=== PATIENT | male | born 1975 | race African-American/Black ===

== ENCOUNTER 2017-11-25 17:53 | Emergency (ER) | payer MEDICAID, MEDICARE ==
[~2017-11-25] VITALS: Ht 167.6 cm; Wt 112.0 kg
[2017-11-25] MEDS ORDERED: SPIR50TA26 PO (18:54)
[2017-11-25] MEDS ORDERED: LACT10SO6 PO (18:54)
[2017-11-25] MEDS ORDERED: ARIP20TA2 GT (18:54)
[2017-11-25] MEDS ORDERED: TRAM50TA3 PO (18:54)
[2017-11-25] MEDS ORDERED: SERT100T PO (18:54)
[2017-11-25] MEDS ORDERED: ACET167L14 PO (18:54)
[2017-11-25] MEDS ORDERED: FERR142T6 PO (18:54)
[2017-11-25] MEDS ORDERED: GLIP10TA10 PO (18:54)
[2017-11-25] MEDS ORDERED: TADA5TAB PO (18:54)
[2017-11-25] MEDS ORDERED: METO-411 PO (18:54)
[2017-11-25] MEDS ORDERED: UBID200C30 PO (18:54)
[2017-11-26 00:50] LABS: BASOPHILS % 1.2 % (0.0-2.0); EOSINOPHILS % 4.9 % (0.0-5.0); HEMATOCRIT. 35.1 % (42.0-52.0); HEMOGLOBIN. 11.5 g/dL (14.0-18.0); LYMPHOCYTES % 10.8 % (20.0-50.0); MEAN CORPUSCULAR HEMOGLOBIN 29.9 pg (28.0-32.0); MEAN CORPUSCULAR VOLUME 91.1 fL (80.0-94.0); MEAN PLATELET VOLUME 9.4 fl (7.4-10.4); MONOCYTES % 11.7 % (2.0-8.0); NEUTROPHILS % 71.4 % (40.0-76.0); PLATELET 181 x1000/uL (130-400); RED BLOOD CELL COUNT 3.85 mill/uL (4.7-6.1); RED CELL DISTRIBUTION WIDTH 15.9 % (11.6-14.6)
[2017-11-26 00:57] LABS: INR 1.1; PROTHROMBIN TIME 11.2 sec (9.4-11.6)
[2017-11-26 00:59] LABS: CHLORIDE 97 mEq/L (98-107)
[2017-11-26 02:52] VITALS: BP 143/91
== END 2017-11-26 02:54 | disposition home or self-care (01) ==
LOC: ER 17:53
DX: I12.0 Hypertensive chronic kidney disease with stage 5 chronic kidney disease or end stage renal disease (principal); E11.22 Type 2 diabetes mellitus with diabetic chronic kidney disease; N18.6 End stage renal disease; R60.0 Localized edema; F12.10 Cannabis abuse, uncomplicated; Z99.2 Dependence on renal dialysis; Z79.84 Long term (current) use of oral hypoglycemic drugs
CPT/HCPCS: 36415; 71045; 80053; 83880; 85025; 85610; 93971; 99285

== ENCOUNTER 2020-09-02 13:23 | Emergency (ER) | payer MEDICARE, MEDICAID ==
[~2020-09-02] VITALS: Ht 180.3 cm; Wt 90.0 kg
[~2020-09-02 13:23] MED LIST: ACET167L14 PO; ARIP20TA2 GT; FERR142T6 PO; GLIP10TA10 PO; LACT10SO6 PO; METO-411 PO; SERT100T PO; SPIR50TA5 PO; TADA5TAB PO; TRAM50TA3 PO; UBID200C35 PO
[2020-09-02] MEDS ORDERED: LEVOFLOXACIN 500MG PREMIX 100 ML IV ONE (14:15)
[2020-09-02 15:08] LABS: BASOPHILS % 1.9 % (0.0-2.0); HEMATOCRIT. 40.2 % (42.0-52.0); HEMOGLOBIN. 13.4 g/dL (14.0-18.0); LYMPHOCYTES % 17.1 % (20.0-50.0); MEAN CORPUSCULAR HEMOGLOBIN 32.5 pg (28.0-32.0); MEAN CORPUSCULAR VOLUME 97.5 fL (80.0-94.0); MEAN PLATELET VOLUME 8.2 fl (7.4-10.4); MONOCYTES % 8.2 % (2.0-8.0); NEUTROPHILS % 65.8 % (40.0-76.0); PLATELET 124 x1000/uL (130-400); RED BLOOD CELL COUNT 4.13 mill/uL (4.7-6.1)
[2020-09-02 19:29] VITALS: BP 154/80
== END 2020-09-02 19:38 | disposition home or self-care (01) ==
LOC: ER 13:23
DX: J18.9 Pneumonia, unspecified organism (principal); F12.10 Cannabis abuse, uncomplicated; E11.9 Type 2 diabetes mellitus without complications; I10 Essential (primary) hypertension; Z20.828 Contact with and (suspected) exposure to other viral communicable diseases; Z79.899 Other long term (current) drug therapy; Z93.0 Tracheostomy status
CPT/HCPCS: 36415; 71045; 80048; 83605; 85025; 87635; 96365; 99285; J1956

== ENCOUNTER 2020-09-27 10:03 | Emergency (ER) | payer MEDICARE, MEDICAID ==
[~2020-09-27] VITALS: Ht 172.7 cm; Wt 115.0 kg
[2020-09-27 12:56] LABS: CHLORIDE 98 mEq/L (98-107)
[2020-09-27 12:57] LABS: BASOPHILS % 0.3 % (0.0-2.0); EOSINOPHILS % 6.1 % (0.0-5.0); HEMATOCRIT. 43.5 % (42.0-52.0); HEMOGLOBIN. 14.5 g/dL (14.0-18.0); LYMPHOCYTES % 18.7 % (20.0-50.0); MEAN CORPUSCULAR HEMOGLOBIN 32.1 pg (28.0-32.0); MEAN CORPUSCULAR VOLUME 96.1 fL (80.0-94.0); MONOCYTES % 11.3 % (2.0-8.0); NEUTROPHILS % 63.6 % (40.0-76.0); PLATELET 136 x1000/uL (130-400); RED BLOOD CELL COUNT 4.52 mill/uL (4.7-6.1); RED CELL DISTRIBUTION WIDTH 18.7 % (11.6-14.6)
[2020-09-27 13:02] LABS: INR 1.1; PARTIAL THROMBOPLASTIN TIME 32.7 sec (23.4-31.0); PHOSPHORUS 4.3 mg/dL (2.5-4.9); PROTHROMBIN TIME 11.3 sec (9.6-11.0)
[2020-09-27 13:28] LABS: BG BASE EXCESS -5.3 mmol/L (-2.0-2.0); BG DEOXYHEMOGLOBIN 1.5 % (0.0-5.0); BG HCO3 ACT 17.3 mmol/L (22.0-26.0); BG METHEMOGLOBIN 0.2 % (0.0-1.5); BG OXYGEN SATURATION 98.5 % (92.0-98.5); BG OXYHEMOGLOBIN 97.3 % (94.0-97.0); BG PCO2 26.8 mmHg (35.0-45.0); BG PH 7.428 (7.350-7.450); BG PO2 112.5 mmHg (75.0-100.0); BG SAMPLE SITE RIGHT RADIAL; BG TOTAL HEMOGLOBIN 15.1 g/dL (12.0-18.0); BG VENT MODE TRACH COLLAR
[2020-09-27] MEDS ORDERED: SODIUM POLYSTYRENE SULFONATE 15 G/60 ML BOT PO ONE (14:45)
[2020-09-27 16:30] VITALS: BP 145/81
== END 2020-09-27 16:33 | disposition home or self-care (01) ==
LOC: ER 10:18
DX: I12.0 Hypertensive chronic kidney disease with stage 5 chronic kidney disease or end stage renal disease (principal); N18.6 End stage renal disease; Z99.2 Dependence on renal dialysis; Z93.0 Tracheostomy status
CPT/HCPCS: 36415; 36600; 71045; 80053; 82375; 82805; 83735; 84100; 84484; 85025; 93005; 99285

== ENCOUNTER 2021-12-04 03:20 | Emergency (ER) | payer OTHER, MEDICAID ==
[~2021-12-04] VITALS: Ht 165.1 cm; Wt 101.0 kg
[2021-12-04 12:07] LABS: CHLORIDE 101 mEq/L (98-107)
[2021-12-04 12:08] LABS: HEMATOCRIT. 34.4 % (42.0-52.0); HEMOGLOBIN. 11.1 g/dL (14.0-18.0); MEAN CORPUSCULAR HEMOGLOBIN 32.4 pg (28.0-32.0); MEAN CORPUSCULAR VOLUME 100.7 fL (80.0-94.0); MEAN PLATELET VOLUME 7.9 fl (7.4-10.4); PLATELET 131 x1000/uL (130-400); RED BLOOD CELL COUNT 3.42 mill/uL (4.7-6.1); RED CELL DISTRIBUTION WIDTH 21.4 % (11.6-14.6)
[2021-12-04] MEDS ORDERED: CALCIUM CHLORIDE 1GM/10ML SYR IV ONE (12:30)
[2021-12-04] MEDS ORDERED: ALBUTEROL (0.083%) 2.5MG/3ML NEB HHN ONE (12:30)
[2021-12-04] MEDS ORDERED: SODIUM BICARBONATE 8.4% 1 MEQ/ML 50ML SYR IV ONE (12:30)
[2021-12-04] MEDS ORDERED: DEXTROSE 50% WATER 50ML SYRINGE IV ONE (12:30)
[2021-12-04] MEDS ORDERED: INSULIN REGULAR (HUMULIN R) 300UNITS/3ML VIAL IV ONE (12:30)
[2021-12-04 12:54] LABS: PLATELET ESTIMATE NORMAL
[2021-12-04] MEDS ORDERED: ALBUTEROL (0.5%) 2.5MG/0.5ML NEB HHN ONE (13:57)
[2021-12-04] MEDS ORDERED: DEXTROSE 50% WATER 50ML SYRINGE IV NR ×2 (16:15→16:46)
[2021-12-04] MEDS ORDERED: DEXTROSE 50% WATER 50ML SYRINGE IV PRN (16:15)
[2021-12-04 16:55] LABS: HEPATITIS B SURFACE ANTIGEN NEGATIVE
[2021-12-04] MEDS ORDERED: BLOOD SUGAR DIAGNOSTIC STRIP TEST SCH (17:00)
[2021-12-04] MEDS ORDERED: IPRATROPIUM/ALBUTEROL 0.5-3(2.5)MG/3ML NEB HHN SCH (18:00)
[2021-12-04 18:08] VITALS: BP 140/60
== END 2021-12-04 20:00 | disposition short-term general hospital (02) ==
LOC: ER 03:20 → CANBEDREQ 20:20
DX: J95.03 Malfunction of tracheostomy stoma (principal); I12.0 Hypertensive chronic kidney disease with stage 5 chronic kidney disease or end stage renal disease; E11.22 Type 2 diabetes mellitus with diabetic chronic kidney disease; N18.6 End stage renal disease; Z99.2 Dependence on renal dialysis; F12.10 Cannabis abuse, uncomplicated; Z79.899 Other long term (current) drug therapy; Z20.822 Contact with and (suspected) exposure to COVID-19
CPT/HCPCS: 36415; 71045; 80053; 82962; 84132; 85025; 86705; 86709; 86803; 87340; 87426; 93005; 94640; 96374; 96375; 96376; 99285; J1815; J3490

== ENCOUNTER 2021-12-09 18:15 | Emergency (ER) | payer OTHER, MEDICAID ==
[~2021-12-09] VITALS: Ht 175.3 cm; Wt 100.0 kg
[2021-12-10 02:00] VITALS: BP 109/51
== END 2021-12-10 02:10 | disposition home or self-care (01) ==
LOC: ER 18:15
DX: Z43.0 Encounter for attention to tracheostomy (principal); I12.0 Hypertensive chronic kidney disease with stage 5 chronic kidney disease or end stage renal disease; E11.22 Type 2 diabetes mellitus with diabetic chronic kidney disease; N18.6 End stage renal disease; Z99.2 Dependence on renal dialysis; J44.9 Chronic obstructive pulmonary disease, unspecified; G40.909 Epilepsy, unspecified, not intractable, without status epilepticus; Z79.899 Other long term (current) drug therapy; Z79.84 Long term (current) use of oral hypoglycemic drugs
CPT/HCPCS: 99285

== ENCOUNTER 2021-12-13 01:11 | Emergency (ER) | payer OTHER, MEDICAID ==
[~2021-12-13] VITALS: Ht 175.3 cm; Wt 118.0 kg
[2021-12-13 04:20] LABS: HEMATOCRIT 31.7 % (42.0-52.0); HEMOGLOBIN 10.5 g/dL (14.0-18.0); MEAN CORPUSCULAR HEMOGLOBIN 32.5 pg (28.0-32.0); MEAN CORPUSCULAR VOLUME 98.5 fL (80.0-94.0); PLATELET 173 x1000/uL (130-400); RED BLOOD CELL COUNT 3.21 mill/uL (4.7-6.1); RED CELL DISTRIBUTION WIDTH 20.5 % (11.6-14.6)
[2021-12-13 04:26] LABS: CHLORIDE 103 mEq/L (98-107)
[2021-12-13 10:00] VITALS: BP 97/45
== END 2021-12-13 11:09 | disposition short-term general hospital (02) ==
LOC: ER 01:11
DX: R06.02 Shortness of breath (principal); I12.0 Hypertensive chronic kidney disease with stage 5 chronic kidney disease or end stage renal disease; E11.22 Type 2 diabetes mellitus with diabetic chronic kidney disease; N18.6 End stage renal disease; Z20.822 Contact with and (suspected) exposure to COVID-19; Z99.2 Dependence on renal dialysis; Z87.891 Personal history of nicotine dependence; Z79.899 Other long term (current) drug therapy
CPT/HCPCS: 36415; 80053; 85027; 87426; 99285

== ENCOUNTER 2022-01-14 19:02 | Inpatient (IN) | payer OTHER, MEDICAID ==
[~2022-01-14] VITALS: Ht 167.6 cm; Wt 113.4 kg
[2022-01-14] MEDS ORDERED: ALBUTEROL (0.083%) 2.5MG/3ML NEB HHN STA (19:30)
[2022-01-14] MEDS ORDERED: IPRATROPIUM BROMIDE (0.02%) 0.5MG/2.5ML NEB HHN STA (19:30)
[2022-01-14] MEDS ORDERED: METHYLPREDNISOLONE SOD SUCC 125 MG/2 ML VIAL IV STA (19:30)
[2022-01-14 20:49] LABS: HEMATOCRIT. 30.6 % (42.0-52.0); MEAN CORPUSCULAR HEMOGLOBIN 33.5 pg (28.0-32.0); MEAN CORPUSCULAR VOLUME 102.8 fL (80.0-94.0); MEAN PLATELET VOLUME 8.2 fl (7.4-10.4); PLATELET 140 x1000/uL (130-400); RED BLOOD CELL COUNT 2.97 mill/uL (4.7-6.1); RED CELL DISTRIBUTION WIDTH 20.3 % (11.6-14.6)
[2022-01-14 21:04] LABS: CHLORIDE 99 mEq/L (98-107)
[2022-01-14 21:15] LABS: PLATELET ESTIMATE NORMAL
[2022-01-14] MEDS ORDERED: FUROSEMIDE 40MG/4ML VIAL IVP NR (22:00)
[2022-01-14] MEDS ORDERED: ALBUTEROL (0.083%) 2.5MG/3ML NEB HHN NR (23:45)
[2022-01-14] MEDS ORDERED: CEFEPIME 1,000 MG in DEXTROSE 5% WATER 50 ML IV NR (23:45)
[2022-01-15] MEDS ORDERED: DEXTROSE 50% WATER 50ML SYRINGE IV PRN (07:00)
[2022-01-15] MEDS ORDERED: INSULIN LISPRO (HUMALOG) 300UNITS/3ML VIAL SUBCUT NR (07:20)
[2022-01-15] MEDS: BLOOD SUGAR DIAGNOSTIC STRIP TEST SCH ×5 (07:48→22:25)
[2022-01-15] MEDS: INSULIN LISPRO 100 UNITS/ML SUBCUT SCH ×4 (07:48→22:38)
[2022-01-15] MEDS ORDERED: LIDOCAINE HCL/PF 1% 2ML VIAL ONE (12:11)
[2022-01-15] MEDS ORDERED: ACETAMINOPHEN 325MG TABLET PO PRN (12:15)
[2022-01-15] MEDS ORDERED: LORAZEPAM 0.5MG TABLET PO PRN (12:15)
[2022-01-15] MEDS ORDERED: ACETAMINOPHEN 650MG SUPP PR PRN (12:15)
[2022-01-15] MEDS ORDERED: DIPHENHYDRAMINE 50MG/ML VIAL IV PRN (12:15)
[2022-01-15] MEDS ORDERED: ONDANSETRON HCL 4MG/2ML INJ IV PRN (12:15)
[2022-01-15] MEDS ORDERED: IPRATROPIUM/ALBUTEROL 0.5-3(2.5)MG/3ML NEB NEB PRN (12:15)
[2022-01-15] MEDS ORDERED: GUAIFENESIN 200MG/10ML SUGAR FREE UDC PO PRN (12:15)
[2022-01-15] MEDS ORDERED: NA PHOS,M-B/NA PHOS,DI-BA ENEMA 118ML PR PRN (12:15)
[2022-01-15] MEDS ORDERED: MAGNESIUM/ALUMINUM HYDROXIDE/SIMETHICONE 30ML UDC PO PRN (12:15)
[2022-01-15] MEDS ORDERED: HYDROCODONE/ACETAMINOPHEN 5/325MG TABLET PO PRN (12:15)
[2022-01-15] MEDS ORDERED: DOCUSATE SODIUM 100MG CAPSULE PO PRN (12:15)
[2022-01-15] MEDS ORDERED: CLONIDINE 0.1MG TABLET PO PRN (12:15)
[2022-01-15 13:20] LABS: BG BASE EXCESS -2.8 mmol/L (-2.0-2.0); BG CARBOXYHEMOGLOBIN 0.6 % (0.5-1.5); BG DEOXYHEMOGLOBIN 3.6 % (0.0-5.0); BG FRACTION INSPIRED OXYGEN 28; BG HCO3 ACT 21.8 mmol/L (22.0-26.0); BG METHEMOGLOBIN 0.3 % (0.0-1.5); BG OXYGEN SATURATION 96.4 % (92.0-98.5); BG OXYHEMOGLOBIN 95.5 % (94.0-97.0); BG PCO2 36.9 mmHg (35.0-45.0); BG PH 7.389 (7.350-7.450); BG SAMPLE SITE RIGHT RADIAL; BG TOTAL HEMOGLOBIN 9.8 g/dL (12.0-18.0); BG VENT MODE TRACH COLLAR
[2022-01-15] MEDS ORDERED: PIPERACILLIN/TAZ 3.375G PREMIX 50 ML IV NR (14:00)
[2022-01-15] MEDS: FAMOTIDINE 20MG/2ML VIAL IV SCH (14:43)
[2022-01-15] MEDS: METHYLPREDNISOLONE SOD SUCC 40 MG/ML VIAL IV SCH ×2 (14:43→23:27)
[2022-01-15 15:08] LABS: INR 1.1; PROTHROMBIN TIME 11.8 sec (9.6-11.0)
[2022-01-15 16:00] VITALS: BP 105/72
[2022-01-15 16:52] VITALS: BP 105/72
[2022-01-15 20:00] VITALS: BP 96/43
[2022-01-15 21:08] LABS: HEPATITIS B SURFACE ANTIGEN NEGATIVE
[2022-01-15] MEDS: IPRATROPIUM/ALBUTEROL 0.5-3(2.5)MG/3ML NEB NEB SCH (21:30)
[2022-01-16] VITALS: BP 100/37
[2022-01-16] MEDS: PIPERACILLIN/TAZOBACTAM 3.375 G in DEXTROSE 5% WATER 50 ML IV SCH ×3 (01:30→21:56)
[2022-01-16] MEDS: IPRATROPIUM/ALBUTEROL 0.5-3(2.5)MG/3ML NEB NEB SCH ×3 (02:49→14:24)
[2022-01-16 04:00] VITALS: BP 103/66
[2022-01-16] MEDS: BLOOD SUGAR DIAGNOSTIC STRIP TEST SCH ×4 (06:50→21:42)
[2022-01-16] MEDS: METHYLPREDNISOLONE SOD SUCC 40 MG/ML VIAL IV SCH ×3 (07:00→21:56)
[2022-01-16] MEDS: INSULIN LISPRO 100 UNITS/ML SUBCUT SCH ×4 (07:50→21:57)
[2022-01-16 08:00] VITALS: BP 97/45
[2022-01-16] MEDS: FAMOTIDINE 20MG/2ML VIAL IV SCH (08:58)
[2022-01-16 12:00] VITALS: BP 91/35
[2022-01-16 13:44] LABS: HEMATOCRIT. 28.6 % (42.0-52.0); HEMOGLOBIN. 9.3 g/dL (14.0-18.0); MEAN CORPUSCULAR HEMOGLOBIN 32.6 pg (28.0-32.0); MEAN CORPUSCULAR VOLUME 100.8 fL (80.0-94.0); MEAN PLATELET VOLUME 8.2 fl (7.4-10.4); PLATELET 167 x1000/uL (130-400); RED BLOOD CELL COUNT 2.84 mill/uL (4.7-6.1); RED CELL DISTRIBUTION WIDTH 20.7 % (11.6-14.6)
[2022-01-16 13:51] LABS: CHLORIDE 103 mEq/L (98-107)
[2022-01-16] MEDS ORDERED: VANCOMYCIN 2,000 MG in DEXT 5% WATER 500 ML IV SCH (15:00)
[2022-01-16 15:21] LABS: PLATELET ESTIMATE NORMAL
[2022-01-16 16:00] VITALS: BP 92/54
[2022-01-16 20:00] VITALS: BP 90/41
[2022-01-17] VITALS: BP 110/71
[2022-01-17] MEDS: IPRATROPIUM/ALBUTEROL 0.5-3(2.5)MG/3ML NEB NEB SCH ×5 (00:06→21:48)
[2022-01-17 04:00] VITALS: BP 104/46
[2022-01-17] MEDS: BLOOD SUGAR DIAGNOSTIC STRIP TEST SCH ×4 (06:44→21:34)
[2022-01-17] MEDS: METHYLPREDNISOLONE SOD SUCC 40 MG/ML VIAL IV SCH ×3 (06:44→21:35)
[2022-01-17 08:00] VITALS: BP 91/33
[2022-01-17] MEDS: INSULIN LISPRO 100 UNITS/ML SUBCUT SCH ×4 (08:19→21:36)
[2022-01-17] MEDS: PIPERACILLIN/TAZOBACTAM 3.375 G in DEXTROSE 5% WATER 50 ML IV SCH ×2 (08:22→21:35)
[2022-01-17] MEDS: FAMOTIDINE 20MG/2ML VIAL IV SCH (08:22)
[2022-01-17 12:00] VITALS: BP 81/41
[2022-01-17] MEDS ORDERED: MIDODRINE HCL 5MG TABLET PO NR (12:30)
[2022-01-17] MEDS: MIDODRINE HCL 5MG TABLET PO SCH ×2 (13:38→18:06)
[2022-01-17 16:00] VITALS: BP 92/50
[2022-01-17 20:00] VITALS: BP 99/56
[2022-01-17] MEDS ORDERED: NALOXONE HCL 0.4MG/ML VIAL IV PRN (21:00)
[2022-01-18] VITALS (7 sets, daily range): BP systolic 95–144; BP diastolic 43–78
[2022-01-18] MEDS: IPRATROPIUM/ALBUTEROL 0.5-3(2.5)MG/3ML NEB NEB SCH ×4 (02:09→20:15)
[2022-01-18] MEDS: METHYLPREDNISOLONE SOD SUCC 40 MG/ML VIAL IV SCH ×3 (06:15→21:11)
[2022-01-18] MEDS: BLOOD SUGAR DIAGNOSTIC STRIP TEST SCH ×4 (06:22→21:11)
[2022-01-18] MEDS: INSULIN LISPRO 100 UNITS/ML SUBCUT SCH ×4 (08:32→21:28)
[2022-01-18] MEDS: MIDODRINE HCL 5MG TABLET PO SCH ×3 (08:33→16:57)
[2022-01-18] MEDS: PIPERACILLIN/TAZOBACTAM 3.375 G in DEXTROSE 5% WATER 50 ML IV SCH ×2 (08:33→21:11)
[2022-01-18] MEDS: FAMOTIDINE 20MG/2ML VIAL IV SCH (08:33)
[2022-01-18 16:06] LABS: HEMATOCRIT. 28.1 % (42.0-52.0); HEMOGLOBIN. 8.8 g/dL (14.0-18.0); MEAN CORPUSCULAR HEMOGLOBIN 32.3 pg (28.0-32.0); MEAN CORPUSCULAR VOLUME 103.8 fL (80.0-94.0); PLATELET 146 x1000/uL (130-400); RED BLOOD CELL COUNT 2.71 mill/uL (4.7-6.1); RED CELL DISTRIBUTION WIDTH 20.5 % (11.6-14.6)
[2022-01-18 16:51] LABS: PLATELET ESTIMATE NORMAL
[2022-01-19] VITALS: BP 126/70
== END 2022-01-19 02:25 | DRG 871 ==
LOC: ER 19:02 → MICUSO 01-15 00:39 → 6WST 01-15 16:42
PROVIDERS: ADMIT Internal Medicine; ATTEND Internal Medicine
PROC: 5A1D70Z Performance of Urinary Filtration, Intermittent, Less than 6 Hours Per Day (ICD-10-PCS; 2022-01-16)
PROC: 0W9B3ZZ Drainage of Left Pleural Cavity, Percutaneous Approach (ICD-10-PCS; principal; 2022-01-18)
PROC: 5A1D70Z Performance of Urinary Filtration, Intermittent, Less than 6 Hours Per Day (ICD-10-PCS; 2022-01-18)
DX: A41.9 Sepsis, unspecified organism (principal); J18.9 Pneumonia, unspecified organism; J96.20 Acute and chronic respiratory failure, unspecified whether with hypoxia or hypercapnia; N18.6 End stage renal disease; I13.2 Hypertensive heart and chronic kidney disease with heart failure and with stage 5 chronic kidney disease, or end stage renal disease; J91.8 Pleural effusion in other conditions classified elsewhere; Z20.822 Contact with and (suspected) exposure to COVID-19; D64.9 Anemia, unspecified; E11.22 Type 2 diabetes mellitus with diabetic chronic kidney disease; E11.65 Type 2 diabetes mellitus with hyperglycemia; I50.9 Heart failure, unspecified; Z93.0 Tracheostomy status; Z99.2 Dependence on renal dialysis; Z79.1 Long term (current) use of non-steroidal anti-inflammatories (NSAID); Z79.899 Other long term (current) drug therapy
CPT/HCPCS: 32555; 36415; 36600; 71045; 80048; 80053; 80202; 82040; 82375; 82805; 82962; 83036; 83880; 84443; 84478; 84484; 85025; 86705; 86709; 86803; 87070; 87340; 87426; 87804; 93005; 93970; 94640; 99285; C1893; J0692; J1815; J1940; J2543; J2920; J2930; J3370; J3490; J7060

== ENCOUNTER 2022-02-04 12:30 | Emergency (ER) | payer OTHER, MEDICAID ==
[~2022-02-04] VITALS: Ht 162.6 cm; Wt 91.0 kg
[2022-02-04 13:19] LABS: HEMATOCRIT. 28.5 % (42.0-52.0); HEMOGLOBIN. 9.1 g/dL (14.0-18.0); MEAN CORPUSCULAR HEMOGLOBIN 31.5 pg (28.0-32.0); MEAN CORPUSCULAR VOLUME 98.2 fL (80.0-94.0); MEAN PLATELET VOLUME 8.7 fl (7.4-10.4); PLATELET 125 x1000/uL (130-400); RED CELL DISTRIBUTION WIDTH 18.8 % (11.6-14.6)
[2022-02-04 13:25] LABS: CHLORIDE 104 mEq/L (98-107)
[2022-02-04 13:30] LABS: D-DIMER 3.51 mg/L FEU (<0.50); INR 1.1; PROTHROMBIN TIME 11.4 sec (9.6-11.0)
[2022-02-04 13:43] LABS: PLATELET ESTIMATE SLIGHTLY DECREASED
[2022-02-04 23:00] VITALS: BP 96/60
== END 2022-02-05 00:07 | disposition short-term general hospital (02) ==
LOC: ER 12:30
DX: A02.2 Localized salmonella infections (principal); M79.89 Other specified soft tissue disorders; D61.818 Other pancytopenia; N18.6 End stage renal disease; I12.0 Hypertensive chronic kidney disease with stage 5 chronic kidney disease or end stage renal disease; E11.22 Type 2 diabetes mellitus with diabetic chronic kidney disease; Z99.2 Dependence on renal dialysis; Z79.899 Other long term (current) drug therapy
CPT/HCPCS: 36415; 71045; 80053; 82962; 85025; 85379; 93005; 93970; 93971; 99285

== ENCOUNTER 2022-08-31 11:14 | Inpatient (IN) | payer OTHER, MEDICAID ==
[~2022-08-31] VITALS: Ht 167.6 cm; Wt 103.2 kg
[2022-08-31] MEDS ORDERED: GLUCAGON,HUMAN RECOMBINANT 1MG/VIAL IV ONE (11:45)
[2022-08-31 12:10] LABS: BG BASE EXCESS -4.3 mmol/L (-2.0-2.0); BG CARBOXYHEMOGLOBIN 0.6 % (0.5-1.5); BG DEOXYHEMOGLOBIN 6.4 % (0.0-5.0); BG HCO3 ACT 20.6 mmol/L (22.0-26.0); BG METHEMOGLOBIN 0.3 % (0.0-1.5); BG OXYGEN SATURATION 93.5 % (92.0-98.5); BG OXYHEMOGLOBIN 92.7 % (94.0-97.0); BG PH 7.363 (7.350-7.450); BG PO2 76.7 mmHg (75.0-100.0); BG SAMPLE SITE RIGHT RADIAL; BG VENT MODE TRACH MASK
[2022-08-31 12:15] LABS: HEMATOCRIT. 31.8 % (42.0-52.0); HEMOGLOBIN. 10.7 g/dL (14.0-18.0); MEAN CORPUSCULAR HEMOGLOBIN 31.6 pg (28.0-32.0); MEAN CORPUSCULAR VOLUME 94.1 fL (80.0-94.0); MEAN PLATELET VOLUME 7.2 fl (7.4-10.4); PLATELET 215 x1000/uL (130-400); RED BLOOD CELL COUNT 3.37 mill/uL (4.7-6.1); RED CELL DISTRIBUTION WIDTH 22.4 % (11.6-14.6)
[2022-08-31 12:37] LABS: CHLORIDE 93 mEq/L (98-107)
[2022-08-31 13:03] LABS: PLATELET ESTIMATE NORMAL
[2022-08-31] MEDS ORDERED: VANCOMYCIN 1G PREMIX 200 ML IV ONE ×2 (13:15→16:15)
[2022-08-31] MEDS ORDERED: PIPERACILLIN/TAZ 3.375G PREMIX 50 ML IV ONE (13:15)
[2022-08-31] MEDS ORDERED: ASPIRIN 81MG TABLET PO ONE (13:30)
[2022-08-31] MEDS ORDERED: GLUCAGON,HUMAN RECOMBINANT 1MG/VIAL IV NR (16:15)
[2022-08-31] MEDS ORDERED: ASPIRIN 81MG TABLET PO NR (16:15)
[2022-08-31] MEDS ORDERED: VANCOMYCIN 1G PREMIX 200 ML IV NR (16:30)
[2022-08-31 20:00] VITALS: BP 138/76
[2022-08-31 22:00] VITALS: BP 125/67
[2022-08-31] MEDS ORDERED: PIPERACILLIN/TAZ 3.375G PREMIX 50 ML IV SCH (23:15)
[2022-08-31] MEDS ORDERED: IPRATROPIUM/ALBUTEROL 0.5-3(2.5)MG/3ML NEB HHN PRN (23:15)
[2022-08-31] MEDS ORDERED: ACETAMINOPHEN 325MG TABLET PO PRN (23:15)
[2022-08-31] MEDS ORDERED: CLONIDINE 0.1MG TABLET PO PRN (23:15)
[2022-08-31] MEDS ORDERED: ONDANSETRON HCL 4MG/2ML INJ IV PRN (23:15)
[2022-09-01] VITALS (17 sets, daily range): BP systolic 97–131; BP diastolic 42–77
[2022-09-01] MEDS: PIPERACILLIN/TAZOBACTAM 3.375 G in DEXTROSE 5% WATER 50 ML IV SCH ×3 (00:16→20:39)
[2022-09-01] MEDS ORDERED: PHENYTOIN 100 MG/4 ML UDC NG SCH (06:00)
[2022-09-01 06:12] LABS: CHLORIDE 95 mEq/L (98-107)
[2022-09-01 06:27] LABS: CREATINE KINASE MB FRACTION 4.5 ng/mL (0.5-3.6)
[2022-09-01] MEDS: BLOOD SUGAR DIAGNOSTIC STRIP TEST SCH ×4 (07:30→20:38)
[2022-09-01] MEDS: INSULIN LISPRO 100 UNITS/ML SUBCUT SCH ×3 (08:00→20:46)
[2022-09-01] MEDS: DEXTROSE 50% WATER 50ML SYRINGE IV PRN ×2 (09:46→17:12)
[2022-09-01] MEDS: ENOXAPARIN 40MG/0.4ML SYR SUBCUT SCH (09:46)
[2022-09-01] MEDS ORDERED: LIDOCAINE HCL 4% CREAM 76GM TUBE TP PRN (10:15)
[2022-09-01] MEDS: PHENYTOIN 100 MG/4 ML UDC NG SCH ×3 (12:01→20:44)
[2022-09-01] MEDS ORDERED: NALOXONE HCL 0.4MG/ML VIAL IV PRN (16:45)
[2022-09-01] MEDS: HYDROCODONE/ACETAMINOPHEN 5/325MG TABLET PO PRN ×2 (17:09→23:12)
[2022-09-01] MEDS ORDERED: VANCOMYCIN 1G PREMIX 200 ML IV NR (18:00)
[2022-09-02] VITALS (11 sets, daily range): BP systolic 92–143; BP diastolic 47–80
[2022-09-02] MEDS: PHENYTOIN 100 MG/4 ML UDC NG SCH ×3 (05:54→21:03)
[2022-09-02] MEDS: HYDROCODONE/ACETAMINOPHEN 5/325MG TABLET PO PRN (07:01)
[2022-09-02] MEDS: BLOOD SUGAR DIAGNOSTIC STRIP TEST SCH ×4 (07:30→21:00)
[2022-09-02] MEDS: INSULIN LISPRO 100 UNITS/ML SUBCUT SCH ×4 (08:00→21:00)
[2022-09-02] MEDS: PIPERACILLIN/TAZOBACTAM 3.375 G in DEXTROSE 5% WATER 50 ML IV SCH ×2 (09:00→21:00)
[2022-09-02] MEDS: ENOXAPARIN 40MG/0.4ML SYR SUBCUT SCH (09:00)
[2022-09-02 09:54] LABS: HEMATOCRIT. 28.8 % (42.0-52.0); HEMOGLOBIN. 9.9 g/dL (14.0-18.0); MEAN CORPUSCULAR VOLUME 93.5 fL (80.0-94.0); MEAN PLATELET VOLUME 7.3 fl (7.4-10.4); PLATELET 186 x1000/uL (130-400); RED BLOOD CELL COUNT 3.08 mill/uL (4.7-6.1); RED CELL DISTRIBUTION WIDTH 22.2 % (11.6-14.6)
[2022-09-02 10:03] LABS: INR 1.2; PROTHROMBIN TIME 13.2 sec (9.6-11.0)
[2022-09-02 11:07] LABS: CHLORIDE 96 mEq/L (98-107)
[2022-09-02] MEDS ORDERED: LIDOCAINE HCL 1% 30ML VIAL (10MG/ML) ONE (12:27)
[2022-09-02] MEDS: MORPHINE SULFATE 2 MG/ML CPJ (NOT FOR IM USE) IV PRN ×2 (16:08→23:40)
[2022-09-02 21:55] LABS: PLATELET ESTIMATE NORMAL
[2022-09-03] VITALS (15 sets, daily range): BP systolic 99–125; BP diastolic 50–62
[2022-09-03] MEDS: MORPHINE SULFATE 2 MG/ML CPJ (NOT FOR IM USE) IV PRN ×2 (05:51→08:33)
[2022-09-03] MEDS: PHENYTOIN 100 MG/4 ML UDC NG SCH ×3 (06:00→21:51)
[2022-09-03] MEDS: BLOOD SUGAR DIAGNOSTIC STRIP TEST SCH ×4 (07:30→21:00)
[2022-09-03] MEDS ORDERED: SODIUM BICARBONATE 4% (2.4MEQ) 5ML VIAL IV ONE (07:58)
[2022-09-03] MEDS: INSULIN LISPRO 100 UNITS/ML SUBCUT SCH ×4 (08:00→21:00)
[2022-09-03] MEDS: PIPERACILLIN/TAZOBACTAM 3.375 G in DEXTROSE 5% WATER 50 ML IV SCH ×2 (09:00→21:48)
[2022-09-03] MEDS: HYDROCODONE/ACETAMINOPHEN 5/325MG TABLET PO PRN ×2 (12:48→21:48)
[2022-09-03] MEDS: ENOXAPARIN 40MG/0.4ML SYR SUBCUT SCH (12:49)
[2022-09-03 13:18] LABS: HEMATOCRIT. 29.2 % (42.0-52.0); HEMOGLOBIN. 9.7 g/dL (14.0-18.0); MEAN CORPUSCULAR HEMOGLOBIN 31.4 pg (28.0-32.0); MEAN CORPUSCULAR VOLUME 94.7 fL (80.0-94.0); MEAN PLATELET VOLUME 7.7 fl (7.4-10.4); PLATELET 178 x1000/uL (130-400); RED BLOOD CELL COUNT 3.08 mill/uL (4.7-6.1); RED CELL DISTRIBUTION WIDTH 22.4 % (11.6-14.6)
[2022-09-03 14:12] LABS: NUCLEATED RED BLOOD CELLS 1 /100 WBC; PLATELET ESTIMATE NORMAL
[2022-09-03 16:07] LABS: CHLORIDE 93 mEq/L (98-107)
[2022-09-03] MEDS ORDERED: VANCOMYCIN 750MG PREMIX 150 ML IV SCH (21:00)
[2022-09-04 00:33] LABS: HEPATITIS B SURFACE ANTIGEN NEGATIVE
[2022-09-04] MEDS: MORPHINE SULFATE 2 MG/ML CPJ (NOT FOR IM USE) IV PRN ×4 (00:58→09:29)
[2022-09-04 08:00] VITALS: BP 118/84
[2022-09-04 09:20] LABS: HEMATOCRIT. 28.6 % (42.0-52.0); HEMOGLOBIN. 9.7 g/dL (14.0-18.0); MEAN CORPUSCULAR HEMOGLOBIN 32.3 pg (28.0-32.0); MEAN CORPUSCULAR VOLUME 95.6 fL (80.0-94.0); PLATELET 169 x1000/uL (130-400); RED BLOOD CELL COUNT 2.99 mill/uL (4.7-6.1); RED CELL DISTRIBUTION WIDTH 22.3 % (11.6-14.6)
[2022-09-04 09:24] LABS: INR 1.1; PROTHROMBIN TIME 12.2 sec (9.6-11.0)
[2022-09-04] MEDS: PIPERACILLIN/TAZOBACTAM 3.375 G in DEXTROSE 5% WATER 50 ML IV SCH ×2 (09:29→21:57)
[2022-09-04] MEDS: PHENYTOIN 100 MG/4 ML UDC NG SCH ×3 (09:29→22:00)
[2022-09-04] MEDS: ENOXAPARIN 40MG/0.4ML SYR SUBCUT SCH (09:30)
[2022-09-04 11:44] LABS: FOLIC ACID (FOLATE) SERUM 3.3 ng/mL (>5.38)
[2022-09-04 12:00] VITALS: BP 84/48
[2022-09-04] MEDS ORDERED: ACETAMINOPHEN 325MG TABLET PO PRN (13:15)
[2022-09-04 16:00] VITALS: BP 108/79
[2022-09-04 17:19] LABS: PLATELET ESTIMATE NORMAL
[2022-09-04] MEDS: HYDROCODONE/ACETAMINOPHEN 5/325MG TABLET PO PRN (17:38)
[2022-09-04 18:00] VITALS: BP 118/75
[2022-09-04 20:00] VITALS: BP 108/58
[2022-09-04] MEDS: INSULIN LISPRO 100 UNITS/ML SUBCUT SCH (21:00)
[2022-09-04] MEDS: BLOOD SUGAR DIAGNOSTIC STRIP TEST SCH (21:56)
[2022-09-04 22:00] VITALS: BP 107/58
[2022-09-05] VITALS (12 sets, daily range): BP systolic 94–128; BP diastolic 43–93
[2022-09-05] MEDS: MORPHINE SULFATE 2 MG/ML CPJ (NOT FOR IM USE) IV PRN ×3 (02:20→21:38)
[2022-09-05] MEDS: PHENYTOIN 100 MG/4 ML UDC NG SCH ×3 (05:37→21:37)
[2022-09-05 06:34] LABS: HEMATOCRIT. 27.2 % (42.0-52.0); HEMOGLOBIN. 9.1 g/dL (14.0-18.0); MEAN CORPUSCULAR HEMOGLOBIN 31.6 pg (28.0-32.0); MEAN CORPUSCULAR VOLUME 94.2 fL (80.0-94.0); MEAN PLATELET VOLUME 7.5 fl (7.4-10.4); PLATELET 190 x1000/uL (130-400); RED BLOOD CELL COUNT 2.89 mill/uL (4.7-6.1); RED CELL DISTRIBUTION WIDTH 21.4 % (11.6-14.6)
[2022-09-05 07:07] LABS: CHLORIDE 92 mEq/L (98-107)
[2022-09-05] MEDS: INSULIN LISPRO 100 UNITS/ML SUBCUT SCH ×4 (08:00→21:00)
[2022-09-05] MEDS: BLOOD SUGAR DIAGNOSTIC STRIP TEST SCH ×4 (08:11→21:21)
[2022-09-05] MEDS: FOLIC ACID 1MG TABLET PO SCH (09:12)
[2022-09-05] MEDS: PIPERACILLIN/TAZOBACTAM 3.375 G in DEXTROSE 5% WATER 50 ML IV SCH (09:13)
[2022-09-05] MEDS: ENOXAPARIN 40MG/0.4ML SYR SUBCUT SCH (09:13)
[2022-09-05 17:13] LABS: HEPATITIS B SURFACE ANTIGEN NEGATIVE
[2022-09-05] MEDS ORDERED: CHLORHEXIDINE GLUCONATE 4% EXTERNAL USE TOP SCH (21:00)
[2022-09-05] MEDS ORDERED: DOCUSATE SODIUM 100MG CAPSULE PO SCH (21:00)
[2022-09-05] MEDS ORDERED: ASCORBIC ACID 500 MG TABLET PO SCH (21:00)
[2022-09-05] MEDS ORDERED: BISACODYL 10MG SUPP PR PRN (21:00)
[2022-09-05] MEDS: ALLOPURINOL 300 MG TABLET PO SCH (21:37)
[2022-09-06] VITALS (40 sets, daily range): BP systolic 78–136; BP diastolic 44–81
[2022-09-06] MEDS: MORPHINE SULFATE 2 MG/ML CPJ (NOT FOR IM USE) IV PRN ×2 (02:23→17:16)
[2022-09-06] MEDS: HYDROCODONE/ACETAMINOPHEN 5/325MG TABLET PO PRN ×2 (02:59→12:14)
[2022-09-06] MEDS: PHENYTOIN 100 MG/4 ML UDC NG SCH ×3 (06:17→21:42)
[2022-09-06] MEDS: ALLOPURINOL 300 MG TABLET PO SCH (06:17)
[2022-09-06] MEDS: CHLORHEXIDINE GLUCONATE 4% EXTERNAL USE TOP SCH ×2 (06:18→09:22)
[2022-09-06 06:40] LABS: HEMATOCRIT. 25.5 % (42.0-52.0); HEMOGLOBIN. 8.7 g/dL (14.0-18.0); MEAN CORPUSCULAR HEMOGLOBIN 32.1 pg (28.0-32.0); MEAN CORPUSCULAR VOLUME 94.3 fL (80.0-94.0); MEAN PLATELET VOLUME 7.2 fl (7.4-10.4); PLATELET 190 x1000/uL (130-400); RED CELL DISTRIBUTION WIDTH 21.3 % (11.6-14.6)
[2022-09-06] MEDS: BLOOD SUGAR DIAGNOSTIC STRIP TEST SCH ×4 (07:30→21:32)
[2022-09-06] MEDS: INSULIN LISPRO 100 UNITS/ML SUBCUT SCH ×4 (08:00→21:00)
[2022-09-06] MEDS ORDERED: PROPOFOL 200MG/20ML VIAL IV ONE (08:09)
[2022-09-06] MEDS ORDERED: FENTANYL CITRATE/PF 50MCG/ML 2ML VIAL ONE (08:09)
[2022-09-06] MEDS ORDERED: POLYMYXIN B SULFATE 500000 UNITS/VIAL ONE (08:09)
[2022-09-06] MEDS ORDERED: SKIN ADHESIVE 0.7 GM EA TOP ONE (08:09)
[2022-09-06] MEDS ORDERED: MIDAZOLAM HCL 2 MG/2 ML VIAL ONE (08:09)
[2022-09-06] MEDS ORDERED: BUPIVACAINE HCL/PF 0.5% (5MG/ML) 10ML ONE (08:09)
[2022-09-06] MEDS ORDERED: VECURONIUM BROMIDE 10 MG/VIAL IV ONE (08:09)
[2022-09-06] MEDS ORDERED: DEXAMETHASONE 4MG/ML 1ML VIAL ONE (08:09)
[2022-09-06] MEDS: FOLIC ACID 1MG TABLET PO SCH (09:00)
[2022-09-06] MEDS: ENOXAPARIN 40MG/0.4ML SYR SUBCUT SCH (09:00)
[2022-09-06 11:24] LABS: PLATELET ESTIMATE NORMAL
[2022-09-06 14:26] LABS: PLATELET ESTIMATE NORMAL
[2022-09-06] MEDS ORDERED: DOPAMINE 400MG/250ML PREMIX 250 ML IV ONE (15:13)
[2022-09-06] MEDS ORDERED: EPINEPHRINE 5 MG in DEXT 5% WATER 245 ML IV NR (15:15)
[2022-09-06] MEDS ORDERED: ROCURONIUM BROMIDE 10MG/ML VIAL 5ML IV ONE (15:59)
[2022-09-06] MEDS ORDERED: TALC 3 GM VIAL IX NR (16:00)
[2022-09-06] MEDS ORDERED: ONDANSETRON HCL 4MG/2ML INJ IV PRN (16:30)
[2022-09-06] MEDS ORDERED: ALBUMIN HUMAN 25GM/100ML (25%) IV PRN (16:30)
[2022-09-06] MEDS ORDERED: KETOROLAC 15MG/ML VIAL IV PRN (16:30)
[2022-09-06] MEDS ORDERED: ACETAMINOPHEN 325MG TABLET PO PRN (16:30)
[2022-09-06 17:10] LABS: BG BASE EXCESS -8.4 mmol/L (-2.0-2.0); BG CARBOXYHEMOGLOBIN 0.3 % (0.5-1.5); BG DEOXYHEMOGLOBIN 1.3 % (0.0-5.0); BG FRACTION INSPIRED OXYGEN 100; BG HCO3 ACT 16.9 mmol/L (22.0-26.0); BG METHEMOGLOBIN 0.3 % (0.0-1.5); BG OXYGEN SATURATION 98.7 % (92.0-98.5); BG OXYHEMOGLOBIN 98.1 % (94.0-97.0); BG PH 7.314 (7.350-7.450); BG PO2 257.7 mmHg (75.0-100.0); BG SAMPLE SITE LEFT RADIAL; BG TOTAL HEMOGLOBIN 9.5 g/dL (12.0-18.0); BG VENT MODE VENT - CPAP
[2022-09-06] MEDS: DOPAMINE 400MG/250ML PREMIX 250 ML IV SCH (17:17)
[2022-09-06] MEDS: BACITRACIN 15GM TUBE TOP SCH (18:31)
[2022-09-06] MEDS: IPRATROPIUM/ALBUTEROL 0.5-3(2.5)MG/3ML NEB HHN SCH (20:33)
[2022-09-06] MEDS: OXYCODONE HCL/ACETAMINOPHEN 5/325MG TABLET PO PRN (21:43)
[2022-09-07] VITALS (76 sets, daily range): BP systolic 80–144; BP diastolic 49–109
[2022-09-07] MEDS: MORPHINE SULFATE 2 MG/ML CPJ (NOT FOR IM USE) IV PRN ×2 (00:03→06:56)
[2022-09-07] MEDS: IPRATROPIUM/ALBUTEROL 0.5-3(2.5)MG/3ML NEB HHN SCH ×6 (00:30→19:56)
[2022-09-07] MEDS: OXYCODONE HCL/ACETAMINOPHEN 5/325MG TABLET PO PRN ×2 (04:00→21:12)
[2022-09-07] MEDS: PHENYTOIN 100 MG/4 ML UDC NG SCH ×3 (05:08→21:11)
[2022-09-07 05:47] LABS: HEMATOCRIT. 29.1 % (42.0-52.0); HEMOGLOBIN. 9.7 g/dL (14.0-18.0); MEAN CORPUSCULAR HEMOGLOBIN 31.6 pg (28.0-32.0); MEAN CORPUSCULAR VOLUME 95.5 fL (80.0-94.0); MEAN PLATELET VOLUME 7.1 fl (7.4-10.4); PLATELET 247 x1000/uL (130-400); RED BLOOD CELL COUNT 3.05 mill/uL (4.7-6.1); RED CELL DISTRIBUTION WIDTH 21.4 % (11.6-14.6)
[2022-09-07] MEDS ORDERED: SODIUM POLYSTYRENE SULFONATE 15 G/60 ML BOT PO NR (07:45)
[2022-09-07] MEDS: INSULIN LISPRO 100 UNITS/ML SUBCUT SCH ×3 (08:20→21:00)
[2022-09-07] MEDS: BLOOD SUGAR DIAGNOSTIC STRIP TEST SCH ×3 (08:22→21:08)
[2022-09-07] MEDS: FAMOTIDINE 20MG/2ML VIAL IV SCH (09:12)
[2022-09-07] MEDS: ENOXAPARIN 40MG/0.4ML SYR SUBCUT SCH (09:14)
[2022-09-07] MEDS: FOLIC ACID 1MG TABLET PO SCH (09:14)
[2022-09-07] MEDS: BACITRACIN 15GM TUBE TOP SCH ×2 (09:14→17:39)
[2022-09-07] MEDS ORDERED: NALOXONE HCL 0.4MG/ML VIAL IV PRN (12:00)
[2022-09-07 14:24] LABS: NUCLEATED RED BLOOD CELLS 1 /100 WBC
[2022-09-07 14:25] LABS: PLATELET ESTIMATE NORMAL
[2022-09-07 15:46] LABS: BG BASE EXCESS -4.3 mmol/L (-2.0-2.0); BG CARBOXYHEMOGLOBIN 0.3 % (0.5-1.5); BG DEOXYHEMOGLOBIN 3.5 % (0.0-5.0); BG FRACTION INSPIRED OXYGEN 60; BG METHEMOGLOBIN 0.1 % (0.0-1.5); BG OXYGEN SATURATION 96.5 % (92.0-98.5); BG OXYHEMOGLOBIN 96.1 % (94.0-97.0); BG PCO2 33.6 mmHg (35.0-45.0); BG PH 7.392 (7.350-7.450); BG PO2 97.9 mmHg (75.0-100.0); BG SAMPLE SITE RIGHT RADIAL; BG TOTAL HEMOGLOBIN 9.2 g/dL (12.0-18.0); BG VENT MODE COOL AEROSOL
[2022-09-07] MEDS ORDERED: VANCOMYCIN 2,000 MG in DEXT 5% WATER 500 ML IV NR (16:30)
[2022-09-07] MEDS: PIPERACILLIN/TAZOBACTAM 3.375 G in DEXTROSE 5% WATER 50 ML IV SCH (17:43)
[2022-09-07] MEDS: DOPAMINE 400MG/250ML PREMIX 250 ML IV SCH (22:30)
[2022-09-08] VITALS (93 sets, daily range): BP systolic 86–140; BP diastolic 46–90
[2022-09-08] MEDS: IPRATROPIUM/ALBUTEROL 0.5-3(2.5)MG/3ML NEB HHN SCH ×7 (00:36→23:32)
[2022-09-08] MEDS: DOPAMINE 400MG/250ML PREMIX 250 ML IV SCH ×3 (03:54→21:19)
[2022-09-08] MEDS: PHENYTOIN 100 MG/4 ML UDC NG SCH ×3 (05:16→21:17)
[2022-09-08 05:34] LABS: MEAN CORPUSCULAR HEMOGLOBIN 31.5 pg (28.0-32.0); MEAN CORPUSCULAR VOLUME 94.4 fL (80.0-94.0); MEAN PLATELET VOLUME 6.8 fl (7.4-10.4); PLATELET 248 x1000/uL (130-400); RED BLOOD CELL COUNT 2.86 mill/uL (4.7-6.1); RED CELL DISTRIBUTION WIDTH 21.1 % (11.6-14.6)
[2022-09-08] MEDS: BLOOD SUGAR DIAGNOSTIC STRIP TEST SCH ×4 (07:50→21:00)
[2022-09-08] MEDS: BACITRACIN 15GM TUBE TOP SCH ×2 (08:57→17:42)
[2022-09-08] MEDS: FAMOTIDINE 20MG/2ML VIAL IV SCH (08:58)
[2022-09-08] MEDS: ENOXAPARIN 40MG/0.4ML SYR SUBCUT SCH (08:58)
[2022-09-08] MEDS: PIPERACILLIN/TAZOBACTAM 3.375 G in DEXTROSE 5% WATER 50 ML IV SCH ×2 (08:58→21:19)
[2022-09-08] MEDS: FOLIC ACID 1MG TABLET PO SCH (08:58)
[2022-09-08] MEDS: INSULIN LISPRO 100 UNITS/ML SUBCUT SCH ×4 (09:00→21:00)
[2022-09-08 10:32] LABS: PLATELET ESTIMATE NORMAL
[2022-09-08] MEDS ORDERED: DILTIAZEM HCL 5MG/ML 5ML VIAL IV NR (17:30)
[2022-09-08 18:13] LABS: HEPATITIS B SURFACE ANTIGEN NEGATIVE
[2022-09-08] MEDS: OXYCODONE HCL/ACETAMINOPHEN 5/325MG TABLET PO PRN (21:18)
[2022-09-09] VITALS (101 sets, daily range): BP systolic 71–141; BP diastolic 31–78
[2022-09-09] MEDS: IPRATROPIUM/ALBUTEROL 0.5-3(2.5)MG/3ML NEB HHN SCH ×6 (03:12→23:55)
[2022-09-09] MEDS: PHENYTOIN 100 MG/4 ML UDC NG SCH ×3 (06:31→21:32)
[2022-09-09 06:56] LABS: HEMATOCRIT. 25.6 % (42.0-52.0); HEMOGLOBIN. 8.5 g/dL (14.0-18.0); MEAN CORPUSCULAR HEMOGLOBIN 31.3 pg (28.0-32.0); MEAN PLATELET VOLUME 7.1 fl (7.4-10.4); PLATELET 231 x1000/uL (130-400); RED BLOOD CELL COUNT 2.72 mill/uL (4.7-6.1)
[2022-09-09 07:06] LABS: CHLORIDE 88 mEq/L (98-107)
[2022-09-09] MEDS: BLOOD SUGAR DIAGNOSTIC STRIP TEST SCH ×4 (07:46→21:00)
[2022-09-09] MEDS: INSULIN LISPRO 100 UNITS/ML SUBCUT SCH ×4 (07:47→21:00)
[2022-09-09] MEDS: FOLIC ACID 1MG TABLET PO SCH (08:21)
[2022-09-09] MEDS: PIPERACILLIN/TAZOBACTAM 3.375 G in DEXTROSE 5% WATER 50 ML IV SCH ×2 (08:21→21:33)
[2022-09-09] MEDS: FAMOTIDINE 20MG/2ML VIAL IV SCH (08:21)
[2022-09-09] MEDS: ENOXAPARIN 40MG/0.4ML SYR SUBCUT SCH (08:22)
[2022-09-09] MEDS: BACITRACIN 15GM TUBE TOP SCH ×2 (08:22→17:03)
[2022-09-09] MEDS: DOPAMINE 400MG/250ML PREMIX 250 ML IV SCH (08:23)
[2022-09-09 12:25] LABS: PLATELET ESTIMATE NORMAL
[2022-09-09] MEDS: MIDODRINE HCL 5MG TABLET PO SCH (17:04)
[2022-09-09] MEDS: EPOETIN ALFA-EPBX 4,000 UNIT/ML VIAL SUBCUT SCH (21:33)
[2022-09-10] VITALS (80 sets, daily range): BP systolic 56–140; BP diastolic 39–94
[2022-09-10] MEDS: PHENYTOIN 100 MG/4 ML UDC NG SCH ×3 (05:39→23:20)
[2022-09-10 06:28] LABS: HEMATOCRIT. 22.6 % (42.0-52.0); HEMOGLOBIN. 7.7 g/dL (14.0-18.0); MEAN CORPUSCULAR VOLUME 94.1 fL (80.0-94.0); PLATELET 226 x1000/uL (130-400); RED CELL DISTRIBUTION WIDTH 21.1 % (11.6-14.6)
[2022-09-10] MEDS: BLOOD SUGAR DIAGNOSTIC STRIP TEST SCH ×4 (07:50→21:00)
[2022-09-10] MEDS: INSULIN LISPRO 100 UNITS/ML SUBCUT SCH ×5 (08:20→21:00)
[2022-09-10] MEDS: IPRATROPIUM/ALBUTEROL 0.5-3(2.5)MG/3ML NEB HHN SCH ×4 (08:39→20:31)
[2022-09-10] MEDS: ENOXAPARIN 40MG/0.4ML SYR SUBCUT SCH (09:28)
[2022-09-10] MEDS: FAMOTIDINE 20MG/2ML VIAL IV SCH (09:28)
[2022-09-10] MEDS: FOLIC ACID 1MG TABLET PO SCH (09:28)
[2022-09-10] MEDS: BACITRACIN 15GM TUBE TOP SCH ×2 (09:29→17:10)
[2022-09-10] MEDS: MIDODRINE HCL 5MG TABLET PO SCH ×3 (09:31→17:09)
[2022-09-10] MEDS: PIPERACILLIN/TAZOBACTAM 3.375 G in DEXTROSE 5% WATER 50 ML IV SCH ×2 (09:31→23:20)
[2022-09-10] MEDS: DOPAMINE 400MG/250ML PREMIX 250 ML IV SCH ×3 (09:33→23:19)
[2022-09-10 12:37] LABS: PLATELET ESTIMATE NORMAL
[2022-09-10] MEDS: OXYCODONE HCL/ACETAMINOPHEN 5/325MG TABLET PO PRN (13:04)
[2022-09-11] VITALS (100 sets, daily range): BP systolic 74–141; BP diastolic 24–80
[2022-09-11] MEDS: IPRATROPIUM/ALBUTEROL 0.5-3(2.5)MG/3ML NEB HHN SCH ×6 (00:15→20:30)
[2022-09-11] MEDS: OXYCODONE HCL/ACETAMINOPHEN 5/325MG TABLET PO PRN (04:21)
[2022-09-11 05:48] LABS: HEMATOCRIT. 23.1 % (42.0-52.0); HEMOGLOBIN. 7.7 g/dL (14.0-18.0); MEAN CORPUSCULAR HEMOGLOBIN 31.5 pg (28.0-32.0); MEAN PLATELET VOLUME 6.9 fl (7.4-10.4); PLATELET 274 x1000/uL (130-400); RED BLOOD CELL COUNT 2.45 mill/uL (4.7-6.1); RED CELL DISTRIBUTION WIDTH 20.7 % (11.6-14.6)
[2022-09-11] MEDS: PHENYTOIN 100 MG/4 ML UDC NG SCH ×3 (06:40→23:17)
[2022-09-11] MEDS: BLOOD SUGAR DIAGNOSTIC STRIP TEST SCH ×4 (08:07→21:03)
[2022-09-11] MEDS: INSULIN LISPRO 100 UNITS/ML SUBCUT SCH ×4 (08:07→21:00)
[2022-09-11] MEDS: FOLIC ACID 1MG TABLET PO SCH (08:08)
[2022-09-11] MEDS: MIDODRINE HCL 5MG TABLET PO SCH ×3 (08:08→17:31)
[2022-09-11] MEDS: BACITRACIN 15GM TUBE TOP SCH ×2 (08:08→17:33)
[2022-09-11] MEDS: ENOXAPARIN 40MG/0.4ML SYR SUBCUT SCH (08:08)
[2022-09-11 10:12] LABS: PLATELET ESTIMATE NORMAL
[2022-09-11] MEDS: DOPAMINE 400MG/250ML PREMIX 250 ML IV SCH ×2 (10:21→17:32)
[2022-09-11] MEDS: FAMOTIDINE 20MG/2ML VIAL IV SCH (10:58)
[2022-09-11] MEDS: PIPERACILLIN/TAZOBACTAM 3.375 G in DEXTROSE 5% WATER 50 ML IV SCH ×2 (10:58→21:03)
[2022-09-11] MEDS: EPOETIN ALFA-EPBX 4,000 UNIT/ML VIAL SUBCUT SCH (21:03)
[2022-09-12] VITALS (82 sets, daily range): BP systolic 86–128; BP diastolic 38–78
[2022-09-12] MEDS: IPRATROPIUM/ALBUTEROL 0.5-3(2.5)MG/3ML NEB HHN SCH ×6 (00:30→20:12)
[2022-09-12] MEDS: PHENYTOIN 100 MG/4 ML UDC NG SCH ×3 (06:43→21:41)
[2022-09-12] MEDS: BLOOD SUGAR DIAGNOSTIC STRIP TEST SCH ×4 (08:03→20:59)
[2022-09-12] MEDS: INSULIN LISPRO 100 UNITS/ML SUBCUT SCH ×4 (08:03→20:59)
[2022-09-12] MEDS: BACITRACIN 15GM TUBE TOP SCH ×2 (09:13→18:14)
[2022-09-12] MEDS: FAMOTIDINE 20MG/2ML VIAL IV SCH (09:13)
[2022-09-12] MEDS: FOLIC ACID 1MG TABLET PO SCH (09:14)
[2022-09-12] MEDS: ENOXAPARIN 40MG/0.4ML SYR SUBCUT SCH (09:14)
[2022-09-12] MEDS: PIPERACILLIN/TAZOBACTAM 3.375 G in DEXTROSE 5% WATER 50 ML IV SCH (09:14)
[2022-09-12] MEDS: MIDODRINE HCL 5MG TABLET PO SCH ×3 (09:14→18:14)
[2022-09-12 17:53] LABS: MEAN CORPUSCULAR VOLUME 94.9 fL (80.0-94.0); MEAN PLATELET VOLUME 7.1 fl (7.4-10.4); PLATELET 350 x1000/uL (130-400); RED BLOOD CELL COUNT 2.27 mill/uL (4.7-6.1); RED CELL DISTRIBUTION WIDTH 21.4 % (11.6-14.6)
[2022-09-12 18:03] LABS: HEMATOCRIT. 21.5 % (42.0-52.0)
[2022-09-12 21:55] LABS: PLATELET ESTIMATE NORMAL
[2022-09-13] VITALS (37 sets, daily range): BP systolic 90–148; BP diastolic 40–93
[2022-09-13] MEDS: IPRATROPIUM/ALBUTEROL 0.5-3(2.5)MG/3ML NEB HHN SCH ×5 (00:08→16:30)
[2022-09-13 02:33] LABS: HEPATITIS B SURFACE ANTIGEN NEGATIVE
[2022-09-13] MEDS: PHENYTOIN 100 MG/4 ML UDC NG SCH ×3 (05:02→21:32)
[2022-09-13] MEDS: INSULIN LISPRO 100 UNITS/ML SUBCUT SCH ×4 (07:53→21:00)
[2022-09-13] MEDS: BLOOD SUGAR DIAGNOSTIC STRIP TEST SCH ×4 (07:53→21:32)
[2022-09-13] MEDS: ENOXAPARIN 40MG/0.4ML SYR SUBCUT SCH (08:34)
[2022-09-13] MEDS: FAMOTIDINE 20MG/2ML VIAL IV SCH (08:35)
[2022-09-13] MEDS: MIDODRINE HCL 5MG TABLET PO SCH ×3 (08:35→17:48)
[2022-09-13] MEDS: FOLIC ACID 1MG TABLET PO SCH (08:35)
[2022-09-13] MEDS: BACITRACIN 15GM TUBE TOP SCH ×2 (08:36→17:48)
[2022-09-13 10:53] LABS: HEMATOCRIT. 24.1 % (42.0-52.0); HEMOGLOBIN. 8.2 g/dL (14.0-18.0); MEAN CORPUSCULAR HEMOGLOBIN 31.6 pg (28.0-32.0); MEAN CORPUSCULAR VOLUME 92.9 fL (80.0-94.0); PLATELET 360 x1000/uL (130-400); RED BLOOD CELL COUNT 2.59 mill/uL (4.7-6.1); RED CELL DISTRIBUTION WIDTH 20.1 % (11.6-14.6)
[2022-09-13 11:07] LABS: PLATELET ESTIMATE NORMAL
[2022-09-14] VITALS (10 sets, daily range): BP systolic 102–141; BP diastolic 46–72
[2022-09-14] MEDS: IPRATROPIUM/ALBUTEROL 0.5-3(2.5)MG/3ML NEB HHN SCH ×7 (01:20→20:00)
[2022-09-14] MEDS: PHENYTOIN 100 MG/4 ML UDC NG SCH ×3 (05:45→21:40)
[2022-09-14] MEDS: INSULIN LISPRO 100 UNITS/ML SUBCUT SCH (08:00)
[2022-09-14] MEDS: BLOOD SUGAR DIAGNOSTIC STRIP TEST SCH (08:06)
[2022-09-14] MEDS: BACITRACIN 15GM TUBE TOP SCH ×2 (08:16→16:47)
[2022-09-14] MEDS: FOLIC ACID/VITAMIN B COMP W-C TABLET PO SCH (08:16)
[2022-09-14] MEDS: FAMOTIDINE 20MG/2ML VIAL IV SCH (08:17)
[2022-09-14] MEDS: MIDODRINE HCL 5MG TABLET PO SCH ×3 (08:17→16:47)
[2022-09-14] MEDS: FOLIC ACID 1MG TABLET PO SCH (08:17)
[2022-09-14] MEDS: ENOXAPARIN 40MG/0.4ML SYR SUBCUT SCH (08:18)
[2022-09-14] MEDS ORDERED: NALOXONE HCL 0.4MG/ML VIAL IV PRN (10:30)
[2022-09-14] MEDS: TRAMADOL 50MG TABLET PO PRN (10:38)
[2022-09-14 12:39] LABS: HEMATOCRIT. 25.6 % (42.0-52.0); HEMOGLOBIN. 8.6 g/dL (14.0-18.0); MEAN CORPUSCULAR HEMOGLOBIN 31.3 pg (28.0-32.0); MEAN CORPUSCULAR VOLUME 92.7 fL (80.0-94.0); MEAN PLATELET VOLUME 6.7 fl (7.4-10.4); PLATELET 426 x1000/uL (130-400); RED BLOOD CELL COUNT 2.76 mill/uL (4.7-6.1); RED CELL DISTRIBUTION WIDTH 20.1 % (11.6-14.6)
[2022-09-14 12:40] LABS: CHLORIDE 96 mEq/L (98-107)
[2022-09-14 14:20] LABS: PLATELET ESTIMATE SLIGHTLY INCREASED
[2022-09-14] MEDS: EPOETIN ALFA-EPBX 4,000 UNIT/ML VIAL SUBCUT SCH (21:42)
[2022-09-15] VITALS (20 sets, daily range): BP systolic 114–139; BP diastolic 52–80
[2022-09-15] MEDS: IPRATROPIUM/ALBUTEROL 0.5-3(2.5)MG/3ML NEB HHN SCH ×3 (04:51→12:30)
[2022-09-15] MEDS: TRAMADOL 50MG TABLET PO PRN ×2 (04:54→08:56)
[2022-09-15] MEDS: PHENYTOIN 100 MG/4 ML UDC NG SCH ×2 (05:33→13:14)
[2022-09-15] MEDS: FAMOTIDINE 20MG/2ML VIAL IV SCH (08:56)
[2022-09-15] MEDS: FOLIC ACID 1MG TABLET PO SCH (08:56)
[2022-09-15] MEDS: FOLIC ACID/VITAMIN B COMP W-C TABLET PO SCH (08:56)
[2022-09-15] MEDS: MIDODRINE HCL 5MG TABLET PO SCH ×3 (08:56→17:00)
[2022-09-15] MEDS: ENOXAPARIN 40MG/0.4ML SYR SUBCUT SCH (08:57)
[2022-09-15] MEDS: BACITRACIN 15GM TUBE TOP SCH ×2 (09:49→17:59)
[2022-09-15] MEDS ORDERED: HYDROCODONE/ACETAMINOPHEN 5/325MG TABLET PO PRN (12:00)
[2022-09-15] MEDS ORDERED: MORPHINE SULFATE 2 MG/ML CPJ (NOT FOR IM USE) IV NR (14:45)
[2022-09-15] MEDS ORDERED: PHEN100O2 NG (15:30)
[2022-09-15] MEDS ORDERED: HYDR-4350 MT (15:30)
[2022-09-15] MEDS ORDERED: COLCHICINE 0.6MG TABLET PO NR ×2 (16:30→17:21)
[2022-09-15] MEDS ORDERED: HYDR-4001 PO (16:40)
[2022-09-15] MEDS ORDERED: COLCHICINE 0.6MG TABLET PO SCH (17:00)
== END 2022-09-15 19:56 | disposition home health service (06) | DRG 163 ==
LOC: ER 11:14 → 5EST 14:54 → CVICU 09-06 11:40 → 5EST 09-13 13:04
PROVIDERS: ADMIT Internal Medicine; ATTEND Internal Medicine
PROC: 5A1D70Z Performance of Urinary Filtration, Intermittent, Less than 6 Hours Per Day (ICD-10-PCS; 2022-09-01)
PROC: 06PY33Z Removal of Infusion Device from Lower Vein, Percutaneous Approach (ICD-10-PCS; 2022-09-02)
PROC: 0W9B4ZZ Drainage of Left Pleural Cavity, Percutaneous Endoscopic Approach (ICD-10-PCS; 2022-09-03)
PROC: 5A1D70Z Performance of Urinary Filtration, Intermittent, Less than 6 Hours Per Day (ICD-10-PCS; 2022-09-03)
PROC: 3E0L4GC Introduction of Other Therapeutic Substance into Pleural Cavity, Percutaneous Endoscopic Approach (ICD-10-PCS; principal; 2022-09-06)
PROC: 02HV33Z Insertion of Infusion Device into Superior Vena Cava, Percutaneous Approach (ICD-10-PCS; 2022-09-06)
PROC: 5A1935Z Respiratory Ventilation, Less than 24 Consecutive Hours (ICD-10-PCS; 2022-09-06)
PROC: 0BNL4ZZ Release Left Lung, Percutaneous Endoscopic Approach (ICD-10-PCS; 2022-09-06)
PROC: 5A1D70Z Performance of Urinary Filtration, Intermittent, Less than 6 Hours Per Day (ICD-10-PCS; 2022-09-07)
PROC: 5A1D70Z Performance of Urinary Filtration, Intermittent, Less than 6 Hours Per Day (ICD-10-PCS; 2022-09-09)
PROC: 5A1D70Z Performance of Urinary Filtration, Intermittent, Less than 6 Hours Per Day (ICD-10-PCS; 2022-09-11)
PROC: 5A1D70Z Performance of Urinary Filtration, Intermittent, Less than 6 Hours Per Day (ICD-10-PCS; 2022-09-13)
PROC: 30233N1 Transfusion of Nonautologous Red Blood Cells into Peripheral Vein, Percutaneous Approach (ICD-10-PCS; 2022-09-13)
PROC: 5A1D70Z Performance of Urinary Filtration, Intermittent, Less than 6 Hours Per Day (ICD-10-PCS; 2022-09-15)
DX: J18.9 Pneumonia, unspecified organism (principal); J96.21 Acute and chronic respiratory failure with hypoxia; N18.6 End stage renal disease; J90 Pleural effusion, not elsewhere classified; E46 Unspecified protein-calorie malnutrition; K80.00 Calculus of gallbladder with acute cholecystitis without obstruction; I13.2 Hypertensive heart and chronic kidney disease with heart failure and with stage 5 chronic kidney disease, or end stage renal disease; R17 Unspecified jaundice; J44.0 Chronic obstructive pulmonary disease with (acute) lower respiratory infection; Z99.2 Dependence on renal dialysis; I50.9 Heart failure, unspecified; Z20.822 Contact with and (suspected) exposure to COVID-19; Z68.37 Body mass index [BMI] 37.0-37.9, adult; K80.20 Calculus of gallbladder without cholecystitis without obstruction; E78.00 Pure hypercholesterolemia, unspecified; E11.22 Type 2 diabetes mellitus with diabetic chronic kidney disease; E66.9 Obesity, unspecified; D64.9 Anemia, unspecified; G40.909 Epilepsy, unspecified, not intractable, without status epilepticus; E87.5 Hyperkalemia; Z93.0 Tracheostomy status; Z87.891 Personal history of nicotine dependence; Z79.84 Long term (current) use of oral hypoglycemic drugs
CPT/HCPCS: 32555; 36415; 36573; 36589; 36600; 71045; 74176; 76705; 78227; 80048; 80053; 80076; 80185; 80202; 82248; 82375; 82553; 82607; 82728; 82746; 82805; 82962; 83010; 83540; 83550; 83605; 83615; 83880; 84132; 84145; 84484; 84550; 85025; 85044; 86705; 86709; 86803; 86850; 86900; 86920; 87070; 87075; 87340; 87426; 88108; 90935; 93005; 93970; 94002; 94640; 97165; 99291; A9537; C1725; C9803; J0885; J1100; J1265; J1610; J1650; J1815; J2250; J2270; J2543; J2704; J3010; J3370; J3490; J7060; P9016; A4315

== ENCOUNTER 2022-09-18 09:56 | Inpatient (IN) | payer OTHER, MEDICAID ==
[~2022-09-18] VITALS: Ht 170.2 cm; Wt 99.0 kg
[~2022-09-18 09:56] MED LIST changes: +HYDR-4001 PO; +HYDR-4350 MT; +PHEN100O2 NG
[2022-09-18] MEDS ORDERED: ASPIRIN 81MG TABLET PO ONE (12:15)
[2022-09-18] MEDS ORDERED: NITROGLYCERIN 0.4MG TABLET SL SL PRN (12:15)
[2022-09-18 12:29] LABS: HEMATOCRIT. 27.1 % (42.0-52.0); HEMOGLOBIN. 8.9 g/dL (14.0-18.0); MEAN CORPUSCULAR HEMOGLOBIN 30.4 pg (28.0-32.0); MEAN PLATELET VOLUME 7.1 fl (7.4-10.4); PLATELET 468 x1000/uL (130-400); RED BLOOD CELL COUNT 2.92 mill/uL (4.7-6.1); RED CELL DISTRIBUTION WIDTH 20.6 % (11.6-14.6)
[2022-09-18 12:32] LABS: CHLORIDE 94 mEq/L (98-107)
[2022-09-18] MEDS ORDERED: OSELTAMIVIR 75MG CAPSULE PO ONE (13:00)
[2022-09-18] MEDS ORDERED: SODIUM CHLORIDE 0.9% 1000ML BAG (SEPSIS BOLUS) IV ONE (13:00)
[2022-09-18] MEDS ORDERED: VANCOMYCIN 1G PREMIX 200 ML IV ONE (13:00)
[2022-09-18] MEDS ORDERED: VANCOMYCIN 1G PREMIX 200 ML IV NR (13:00)
[2022-09-18] MEDS ORDERED: PIPERACILLIN/TAZ 3.375G PREMIX 50 ML IV ONE (13:00)
[2022-09-18 13:16] LABS: PLATELET ESTIMATE INCREASED
[2022-09-18 13:52] LABS: BG BASE EXCESS -5.8 mmol/L (-2.0-2.0); BG DEOXYHEMOGLOBIN 3.3 % (0.0-5.0); BG FRACTION INSPIRED OXYGEN 50; BG METHEMOGLOBIN 0.3 % (0.0-1.5); BG OXYGEN SATURATION 96.7 % (92.0-98.5); BG OXYHEMOGLOBIN 96.4 % (94.0-97.0); BG PCO2 40.3 mmHg (35.0-45.0); BG PH 7.313 (7.350-7.450); BG PO2 101.2 mmHg (75.0-100.0); BG SAMPLE SITE LEFT RADIAL; BG TOTAL HEMOGLOBIN 10.8 g/dL (12.0-18.0); BG VENT MODE MASK - VENTI
[2022-09-18] MEDS ORDERED: ALBUTEROL (0.083%) 2.5MG/3ML NEB HHN ONE (14:00)
[2022-09-18] MEDS ORDERED: SODIUM POLYSTYRENE SULFONATE 15 G/60 ML BOT PO ONE (14:00)
[2022-09-18] MEDS ORDERED: SODIUM BICARBONATE 8.4% 1 MEQ/ML 50ML SYR IV ONE (14:00)
[2022-09-18 16:45] LABS: INR 1.2; PARTIAL THROMBOPLASTIN TIME 34.3 sec (23.4-31.0); PROTHROMBIN TIME 13.1 sec (9.6-11.0)
[2022-09-18 17:53] LABS: HEPATITIS B SURFACE ANTIGEN NEGATIVE
[2022-09-18] MEDS ORDERED: ONDANSETRON HCL 4MG/2ML INJ IV PRN (22:45)
[2022-09-18] MEDS ORDERED: IPRATROPIUM/ALBUTEROL 0.5-3(2.5)MG/3ML NEB NEB PRN (22:45)
[2022-09-18] MEDS ORDERED: DIPHENHYDRAMINE 50MG/ML VIAL IV PRN (22:45)
[2022-09-18] MEDS ORDERED: CLONIDINE 0.1MG TABLET PO PRN (22:45)
[2022-09-18] MEDS ORDERED: ACETAMINOPHEN 325MG TABLET PO PRN ×2 (22:45)
[2022-09-18] MEDS ORDERED: GUAIFENESIN 200MG/10ML SUGAR FREE UDC PO PRN (22:45)
[2022-09-18] MEDS: PHENYTOIN SODIUM EXTENDED 100MG CAPSULE PO SCH (23:00)
[2022-09-19] VITALS (8 sets, daily range): BP systolic 55–143; BP diastolic 35–72
[2022-09-19] MEDS: PHENYTOIN SODIUM EXTENDED 100MG CAPSULE PO SCH (06:00)
[2022-09-19] MEDS ORDERED: SODIUM CHLORIDE 0.9% INJ 3ML FLUSH IVF SCH (06:00)
[2022-09-19] MEDS ORDERED: DEXTROSE 50% WATER 50ML SYRINGE IV ONE (08:45)
[2022-09-19 09:00] LABS: BG CARBOXYHEMOGLOBIN 0.4 % (0.5-1.5); BG DEOXYHEMOGLOBIN 15.4 % (0.0-5.0); BG FRACTION INSPIRED OXYGEN 100; BG HCO3 ACT 18.4 mmol/L (22.0-26.0); BG METHEMOGLOBIN 0.2 % (0.0-1.5); BG OXYGEN SATURATION 84.5 % (92.0-98.5); BG PCO2 65.4 mmHg (35.0-45.0); BG PH 7.066 (7.350-7.450); BG PO2 71.1 mmHg (75.0-100.0); BG SAMPLE SITE RIGHT BRACHIAL; BG TOTAL HEMOGLOBIN 10.6 g/dL (12.0-18.0); BG VENT MODE VENT - AC
[2022-09-19] MEDS ORDERED: FOLIC ACID/VITAMIN B COMP W-C TABLET PO SCH (09:00)
[2022-09-19] MEDS ORDERED: NOREPINEPHRINE 8 MG in DEXT 5% WATER 242 ML IV PRN (09:15)
[2022-09-19] MEDS ORDERED: IPRATROPIUM/ALBUTEROL 0.5-3(2.5)MG/3ML NEB HHN PRN (09:45)
[2022-09-19] MEDS ORDERED: METHYLPREDNISOLONE SOD SUCC 40 MG/ML VIAL IV SCH (10:00)
[2022-09-19] MEDS ORDERED: PIPERACILLIN/TAZ 3.375G PREMIX 50 ML IV NR (10:04)
[2022-09-19] MEDS ORDERED: SODIUM CHLORIDE 3% FOR INH 4ML UD NEB INH NR (10:30)
[2022-09-19 10:48] LABS: BG BASE EXCESS -11.1 mmol/L (-2.0-2.0); BG CARBOXYHEMOGLOBIN 0.4 % (0.5-1.5); BG DEOXYHEMOGLOBIN 19.6 % (0.0-5.0); BG FRACTION INSPIRED OXYGEN 100; BG HCO3 ACT 17.1 mmol/L (22.0-26.0); BG OXYGEN SATURATION 80.3 % (92.0-98.5); BG PCO2 47.7 mmHg (35.0-45.0); BG PH 7.172 (7.350-7.450); BG PO2 57.2 mmHg (75.0-100.0); BG SAMPLE SITE RIGHT BRACHIAL; BG TOTAL HEMOGLOBIN 11.1 g/dL (12.0-18.0); BG VENT MODE VENT - AC
[2022-09-19] MEDS ORDERED: IPRATROPIUM/ALBUTEROL 0.5-3(2.5)MG/3ML NEB HHN SCH (12:00)
[2022-09-19] MEDS ORDERED: ACETYLCYSTEINE 100MG/ML 10% VIAL 4ML INH SCH (14:00)
[2022-09-19] MEDS ORDERED: PIPERACILLIN/TAZOBACTAM 3.375 G in DEXTROSE 5% WATER 50 ML IV SCH (21:00)
== END 2022-09-19 14:42 | DRG 208 ==
LOC: ER 09:56 → MICUSO 14:30 → EDBEDREQ 14:31 → EDBEDREQTM 14:31
PROVIDERS: ADMIT Internal Medicine; ATTEND Internal Medicine
PROC: 5A1935Z Respiratory Ventilation, Less than 24 Consecutive Hours (ICD-10-PCS; principal; 2022-09-19)
PROC: 5A1221J Performance of Cardiac Output, Continuous, Automated (ICD-10-PCS; 2022-09-19)
PROC: 5A1D70Z Performance of Urinary Filtration, Intermittent, Less than 6 Hours Per Day (ICD-10-PCS; 2022-09-19)
DX: J96.21 Acute and chronic respiratory failure with hypoxia (principal); J18.9 Pneumonia, unspecified organism; N18.6 End stage renal disease; I12.0 Hypertensive chronic kidney disease with stage 5 chronic kidney disease or end stage renal disease; J44.0 Chronic obstructive pulmonary disease with (acute) lower respiratory infection; G93.1 Anoxic brain damage, not elsewhere classified; E44.0 Moderate protein-calorie malnutrition; J96.22 Acute and chronic respiratory failure with hypercapnia; I46.9 Cardiac arrest, cause unspecified; Z20.822 Contact with and (suspected) exposure to COVID-19; E11.22 Type 2 diabetes mellitus with diabetic chronic kidney disease; E66.9 Obesity, unspecified; D63.1 Anemia in chronic kidney disease; E78.00 Pure hypercholesterolemia, unspecified; E87.5 Hyperkalemia; G40.909 Epilepsy, unspecified, not intractable, without status epilepticus; Z99.2 Dependence on renal dialysis; Z93.0 Tracheostomy status
CPT/HCPCS: 36415; 36600; 71045; 80053; 82375; 82805; 82962; 83605; 83880; 84484; 85025; 86705; 86709; 86803; 87340; 87426; 87804; 90935; 93005; 93970; 99291; C9803; J1200; J2543; J2920; J3370; J3490; J7030; J7060; J7608